=== PATIENT | female | born 1990 | race Caucasian/White ===

== ENCOUNTER 2022-01-03 16:46 | Emergency (ER) | payer MEDICARE ==
[~2022-01-03] VITALS: Ht 160 cm; Wt 122.7 kg
[2022-01-03 17:19] LABS: BASO # 0.1 K/mm3 (0.0-0.2); BASO % 0.6 % (0.0-2.0); EOS # 0.2 K/mm3 (0.0-0.7); GRAN # 5.4 K/mm3 (1.4-6.5); GRAN % 61.5 % (42.2-75.2); HEMATOCRIT 47.9 % (37.0-47.0); HEMOGLOBIN 16.3 g/dl (12.5-16.0); LYMPH # 2.6 K/mm3 (1.2-3.4); LYMPH % 29.7 % (20.0-51.0); MEAN CELL VOLUME 88 fl (80.0-100.0); MEAN CORPUSCULAR HEMOGLOBIN 30 pg (27-31); MEAN CORPUSCULAR HGB CONC 34 g/dl (33.0-37.0); MEAN PLATELET VOLUME 9.7 fl (7.4-10.4); MONO # 0.5 K/mm3 (0.1-0.6); PLATELET COUNT 259 K/mm3 (130-400); RED BLOOD COUNT 5.42 M/mm3 (4.10-5.30); REDCELL DISTRIBUTION WIDTH-CV 12.4 % (11.5-14.5)
[2022-01-03 17:27] LABS: PROTHROMBIN TIME 11.1 SECONDS (9.7-12.8)
[2022-01-03 17:29] LABS: PARTIAL THROMBOPLASTIN TIME 27.7 SECONDS (26.0-37.0)
[2022-01-03 17:39] LABS: ALBUMIN 3.4 gm/dL (3.5-5.0); BILIRUBIN,TOTAL 0.5 mg/dL (0.2-1.2); CREATININE, serum 0.68 mg/dL (0.57-1.11); POTASSIUM 4.2 mmol/L (3.5-4.5); TOTAL PROTEIN 7.4 gm/dL (6.2-8.1)
[2022-01-03 17:42] LABS: COLLECTION METHOD CLEAN CATCH
[2022-01-03 18:02] LABS: MUCOUS Present (NOT PRESENT); PH 6 (5-8); URINE APPEARANCE Hazy (CLEAR/HAZY); URINE BACTERIA None Seen /hpf (NONE SEEN); URINE BILIRUBIN Negative (NEGATIVE); URINE BLOOD Negative (NEGATIVE); URINE COLOR Yellow (YELLOW); URINE GLUCOSE 3+ (NEGATIVE); URINE KETONE Negative (NEGATIVE); URINE LEUKOCYTE ESTERASE Negative (NEGATIVE); URINE NITRATE Negative (NEGATIVE); URINE PROTEIN(semi-quant) 2+ (NEGATIVE); URINE UROBILINOGEN Negative (NEGATIVE); URINE WBC 0-2 /hpf (0-2)
[2022-01-03 18:50] VITALS: BP 127/89; PULSE 86
[2022-01-03] MEDS ORDERED: TRESIBA100 UNIT/1 SQ (21:58)
== END 2022-01-03 19:00 | disposition home or self-care (01) ==
LOC: COL.ER 16:46
PROVIDERS: Emergency Medicine
DX: E11.65 Type 2 diabetes mellitus with hyperglycemia (principal); R20.2 Paresthesia of skin; R20.0 Anesthesia of skin; R00.0 Tachycardia, unspecified
CPT/HCPCS: J7030

== ENCOUNTER 2022-01-03 21:27 | Emergency (ER) | payer MEDICARE ==
[~2022-01-03] VITALS: Ht 160 cm; Wt 122.7 kg
[2022-01-03 21:36] VITALS: TEMP 97
[2022-01-03] MEDS ORDERED: TRESIBA100 UNIT/1 SQ (21:58)
[2022-01-03 23:46] VITALS: BP 151/81; PULSE 100
== END 2022-01-03 23:51 | disposition home or self-care (01) ==
LOC: COL.ER 21:27
DX: E11.65 Type 2 diabetes mellitus with hyperglycemia (principal); Z79.4 Long term (current) use of insulin
CPT/HCPCS: J1815; J7030

== ENCOUNTER 2022-05-23 19:27 | Emergency (ER) | payer MEDICARE ==
[~2022-05-23] VITALS: Ht 160 cm; Wt 126.8 kg
[~2022-05-23 19:27] MED LIST: TRESIBA100 UNIT/1 SQ
[2022-05-23 19:32] VITALS: TEMP 97.1
[2022-05-23 20:16] LABS: STREP SCREEN NEGATIVE
[2022-05-23 21:15] VITALS: BP 115/73; PULSE 98
== END 2022-05-23 21:15 | disposition home or self-care (01) ==
LOC: COL.ER 19:27
PROVIDERS: Nurse Practitioner
DX: S93.602A Unspecified sprain of left foot, initial encounter (principal); J02.9 Acute pharyngitis, unspecified; X58.XXXA Exposure to other specified factors, initial encounter